=== PATIENT | male | born 1975 | race Caucasian/White ===

== ENCOUNTER 2016-10-31 10:11 | Emergency (ER) | payer BC ==
[2016-10-31 10:36] VITALS: BP 137/82
--- NOTE | 2016-10-31 10:47 | EDM.PDOC ---
ED HPI Trauma - General Chief Complaint: Lower Extremity Injury/Pain Stated Complaint: RT LEG HURTS Time Seen by Provider: 10/31/16 10:23 Source: Reports: Patient History Limitations: Reports: No limitations - History of Present Illness INITIAL COMMENTS - FREE TEXT/NARRATIVE: HISTORY AND PHYSICAL: [41-year-old male presents with a injury to the right heel] History of Present Illness: [Physical moving into new home in the garage and something hit his heel Having difficulty walking 2 heel pain] Review of Systems: As per history of present illness and below otherwise all systems reviewed and negative. Past medical history: As per history of present illness and as reviewed below otherwise noncontributory. Surgical history: As per history of present illness and as reviewed below otherwise noncontributory. Social history: No reported history of drug or alcohol abuse. Family history: As per history of present illness and as reviewed below otherwise noncontributory. Physical exam: Alert, oriented HEENT: Atraumatic, normocehpalic, pupils reactive, negative for conjunctival pallor or scleral icterus, neck supple, nontender, trachea midline. Lungs: Clear to auscultation, breath sounds equal bilaterally, chest non tender. Heart rate regular Extremities: Right foot and ankle with Edema to the medial heel slight tenderness to the Achilles with compression for range of motion present, negative for cords or calf pain. Neurovascular unremarkable. Neuro: Awake, alert, oriented. Cranial nerves II through XII unremarkable. Cerebellum unremarkable. Motor and sensory unremarkable throughout. Exam nonfocal. Diagnostics: [X-ray right calcaneal] Therapeutics: [Gel ankle brace] Impression: [Heel pain] Plan: [Use brace To give some stability Ibuprofen 3 tabs tid for discomfort follow up with your PCP] Dr. Marcum (internal medicine) [facility] [address] [place] [id number] [address] [facility] [phone] Definitive disposition and diagnosis as appropriate pending reevaluation and review of above. Occurred When: last week Occurred Where: home Method of Injury: direct blow Severity: moderate Pain/Injury Location: Reports: lower extremity, right Consciousness: Reports: no loss of consciousness, remembers incident, remembers coming to hosp Associated Symptoms: Reports: no other symptoms Allergies/ADRs: Allergies No Known Allergies Allergy (Verified 10/31/16 10:28) Home Medications: Ambulatory Orders . [No Known Home Meds] 10/31/16 [Confirmed 10/31/16] Review of Systems - Review of Systems Review Of Systems: ROS reveals no pertinent complaints other than HPI. Trauma Exam - Physical Exam Exam: See Below Course - Vital Signs Last Recorded V/S: Last Vital Signs Temp 37.0 C 10/31/16 10:28 Pulse 81 10/31/16 10:28 Resp 18 10/31/16 10:28 BP 137/82 10/31/16 10:28 Pulse Ox 96 10/31/16 10:28 - Orders/Labs/Meds Orders: Active Orders 24 hr Category Date Time Status Calcaneous Rt [CR] Stat Exams 10/31/16 10:24 Taken Departure - Departure Time of Disposition: 11:07 Disposition: Home, Self-Care 01 Condition: good Clinical Impression: Contusion of right heel Qualifiers: Encounter type: initial encounter Qualified Code(s): S90.31XA - Contusion of right foot, initial encounter Referrals: PCP,None [Primary Care Provider] - Forms: ED Department Discharge Additional Instructions: The following information is given to patients seen in the emergency department who are being discharged to home. This information is to outline your options for follow-up care. We provide all patients seen in our emergency department with a follow-up referral. The need for follow-up, as well as the timing and circumstances, are variable depending upon the specifics of your emergency department visit. If you don't have a primary care physician on staff, we will provide you with a referral. We always advise you to contact your personal physician following an emergency department visit to inform them of the circumstance of the visit and for follow-up with them and/or the need for any referrals to a consulting specialist. The emergency department will also refer you to a specialist when appropriate. This referral assures that you have the opportunity for followup care with a specialist. All of these measure are taken in an effort to provide you with optimal care, which includes your followup. Under all circumstances we always encourage you to contact your private physician who remains a resource for coordinating your care. When calling for followup care, please make the office aware that this follow-up is from your recent emergency room visit. If for any reason you are refused follow-up, please contact the [facility] emergency department at and asked to speak to the emergency department charge nurse. Ibuprofen [id number] 3 tablets 3 times a day Ice your ankle and heel elevate as you can [facility] Dr. Jossue WELSH [facility] [address] [place] [phone] - My Orders Last 24 Hours: My Active Orders 10/31/16 10:24 Calcaneous Rt [CR] Stat - Assessment/Plan Last 24 Hours: My Active Orders 10/31/16 10:24 Calcaneous Rt [CR] Stat
--- NOTE | 2016-11-01 21:18 | CR ---
EXAM DATE: 10/31/16 PATIENT'S AGE: 41 Patient: SAAD GRIFFIN Facility: [place], [place] Site . Site : [id number] Study: XRay Extremity Right [id number] calcaneous-10/31/2016 10:34:41 AM Ordering Physician: Doctor Lilly Final Report: INDICATION: Heel pain. Injury. Technique: Two views right heel/calcaneus. Findings: Mild subcutaneous edema right heel with mild soft tissue swelling right heel. No acute fracture involving the right calcaneus. Small sclerotic area involving the medial proximal calcaneus nonspecific. Remainder negative. Dictated by Humberto Dyson MD @ Oct 31 2016 10:37AM (Electronic Signature) Report Signed by Proxy and Original Signed Document filed in the Medical Record. FERMIN
== END 2016-10-31 11:11 | disposition home or self-care (01) ==
LOC: MW.ED 10:11
DX: S90.31XA Contusion of right foot, initial encounter (principal); W22.8XXA Striking against or struck by other objects, initial encounter; Y92.009 Unspecified place in unspecified non-institutional (private) residence as the place of occurrence of the external cause
CPT/HCPCS: 73650-26-RT; 73650-RT; 99282; 99283